=== PATIENT | female | born 1965 | race Caucasian/White ===

== ENCOUNTER 2025-06-17 07:52 | Outpatient (RCR) | payer OTHER, SELFPAY | END 2025-07-12 13:32 | disposition home or self-care (01) | LOC: HO.PT 07:52 | PROVIDERS: PCP Internal Medicine; Visit Provider Nurse Practitioner Family | DX: N39.46 Mixed incontinence (principal) | CPT/HCPCS: 97112; 97140; 97161; 97530 ==